=== PATIENT | male | born 1945 | race Caucasian/White ===

== ENCOUNTER 2018-07-31 07:00 | Outpatient (CLI) | payer MEDICARE, SELFPAY ==
[2018-07-31 11:38] LABS: Cholesterol 187 mg/dL (50-200); Glucose 111 mg/dL (70-100); HDL Cholesterol 40 mg/dL (40-60); LDL CHOLESTEROL 107 mg/dL (<100); Triglyceride 154 mg/dL (30-150)
[2018-07-31 11:50] LABS: Uric Acid 3.7 mg/dL (3.5-7.2)
== END 2018-07-31 07:20 ==
PROVIDERS: PCP Family Medicine; Visit Provider Family Medicine
DX: R74.8 Abnormal levels of other serum enzymes (principal); E74.39 Other disorders of intestinal carbohydrate absorption; R73.02 Impaired glucose tolerance (oral); I10 Essential (primary) hypertension
CPT/HCPCS: 36415; 80061; 82947; 83721; 84550

== ENCOUNTER 2020-11-06 11:45 | Outpatient (CLI) | payer MEDICARE, SELFPAY ==
[2020-11-06 13:12] LABS: Hemoglobin A1C 5.7 % (<5.7)
[2020-11-06 14:53] LABS: Anion Gap 7.5 mmol/L (3-11); CO2 28.5 mmol/L (21.0-32.0); CREATININE 0.9 mg/dL (0.70-1.30); Chloride 104 mmol/L (98-107); Glucose 110 mg/dL (74-106); Potassium 4.3 mmol/L (3.5-5.1); Sodium 140 mmol/L (136-145)
[2020-11-06 15:17] LABS: Calculated LDL 119 mg/dL (<100); Cholesterol 206 mg/dL (<200); HDL Cholesterol 40 mg/dL (40-60); Triglyceride 238 mg/dL (<150)
== END 2020-11-06 11:46 | disposition home or self-care (01) ==
LOC: LOS 11:46
PROVIDERS: Absent Provider Family Medicine; PCP Family Medicine; Referring Provider Family Medicine; Visit Provider Family Medicine
DX: M10.9 Gout, unspecified (principal); I10 Essential (primary) hypertension; E78.5 Hyperlipidemia, unspecified; R73.9 Hyperglycemia, unspecified; E87.1 Hypo-osmolality and hyponatremia
CPT/HCPCS: 36415; 80051; 80061; 82947; 82565; 83036; 84550

== ENCOUNTER 2021-11-09 08:52 | Outpatient (CLI) | payer MEDICARE, SELFPAY ==
[2021-11-09 12:47] LABS: CREATININE 0.9 mg/dL (0.70-1.30); Calculated LDL 121 mg/dL (<100); Cholesterol 206 mg/dL (<200); HDL Cholesterol 43 mg/dL (40-60); Potassium 4.2 mmol/L (3.5-5.1); Triglyceride 212 mg/dL (<150)
[2021-11-09 13:00] LABS: Hemoglobin A1C 5.8 % (<5.7)
== END 2021-11-09 08:53 | disposition home or self-care (01) ==
LOC: LOS 08:52
PROVIDERS: PCP Family Medicine; Referring Provider Family Medicine; Visit Provider Family Medicine
DX: R73.9 Hyperglycemia, unspecified (principal); E78.5 Hyperlipidemia, unspecified; I10 Essential (primary) hypertension
CPT/HCPCS: 36415; 80061; 82565; 83036; 84132

== ENCOUNTER 2022-04-20 10:35 | Inpatient (IN) | payer MEDICARE, SELFPAY ==
[2022-04-20] VITALS (7 sets, daily range): BP systolic 121–145; BP diastolic 64–78; PULSE 59–76; RESP 16–18; TEMP 36.4–36.8; O2SAT 97–100
--- NOTE | 2022-04-20 | DI.MRI_ITS ---
Exam(s) MR ABDOMEN WO EXAM: MR ABDOMEN WO CLINICAL HISTORY: r/o choledocolithiasis with elevated bilirubin TECHNIQUE: Multiplanar multisequence MRI was performed with both pre and post contrast infused seque nces. MRCP also performed. COMPARISON: US US ABDOMEN LIMITED from 04/20/2022 FINDINGS: VISUALIZED LUNG BASES: No pleural effusions evident. There is no ascites evident. LIVER: Liver size is upper normal. No significant focal hepatic lesions noted. No dilated intrahepa tic ducts. BILIARY/MRCP: Multiple tiny layering gallstones noted in the gallbladder lumen. There is some gallbl adder wall edema and mild pericholecystic fluid. The CBD is not dilated, measuring 4 millimeters. T here are no obvious calculi seen within the nondilated CBD. PANCREAS: There is a small cystic lesion in the posterior aspect of the body of the pancreas which me asures approximately 6 x4 millimeters. Pancreatic duct is not dilated.No other focal pancreatic find ings. SPLEEN: Spleen is not enlarged and there are no intrasplenic lesions. ADRENALS: There are no significant adrenal masses. KIDNEYS: No solid renal masses. No hydronephrosis.No cysts evident. ABDOMINAL AORTA: Not enlarged and there is no significant para-aortic adenopathy. ANTERIOR ABDOMINAL WALL/GI: There is no evidence of significant anterior abdominal wall hernia in the field of view of this study.Is no evidence of obvious bowel obstruction. OSSEOUS: There are no lytic osseous lesions in the field of view of this study. IMPRESSION: 1. Cholelithiasis. There is layering myriad of tiny calculi in the gallbladder lumen and there is so me pericholecystic fluid, consistent with element of cholecystitis. The CBD is not dilated and there are no obvious calculi evident within the nondilated CBD. 2. Incidentally noted is a solitary small 6 x 4 millimeters cystic lesion in the posterior aspect of the pancreatic body. 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 This can be followed conservatively with repeat MRI scan in 1 year. DATA REPOSITORY:
[2022-04-20 11:07] LABS: Bilirubin Large (Negative); Blood Negative (Negative); Clarity Sl Cloudy (Clear); Glucose Negative (Negative); Ketones 15 mg/dL (Negative); Leukocyte Esterase Negative (Negative); Nitrite Negative (Negative); Specific Gravity 1.025 (1.005-1.025); Urobilinogen 0.2 EU/dL (Up TO 0.2)
--- NOTE | 2022-04-20 11:08 | DI.US_ITS ---
Exam(s) US ABDOMEN LIMITED EXAM: US ABDOMEN LIMITED CLINICAL HISTORY: RUQ pain TECHNIQUE: Ultrasound abdomen performed using standard protocol. COMPARISON: No exams were available for comparison FINDINGS: There is no ascites evident. LIVER: There are no hepatic lesions evident nor dilatation of intrahepatic ducts. GALLBLADDER/BILIARY: There is what is either layering sludge or numerous tiny gallstones in the gallb ladder lumen. Gallbladder wall is mildly thickened. There is a small amount of pericholecystic flui d. The patient was tender over this area during scanning today. The common hepatic duct isnot dilated, measuring 5-6mm at the level of mohsen hepatis. PANCREAS: There is no evidence of pancreatic mass nor dilatation of the pancreatic duct. RIGHT KIDNEY:No evidence of solid mass, calculus, nor hydronephrosis. No cortical cysts evident. ABDOMINAL AORTA AND IVC: Visualized portions exhibit normal caliber. IMPRESSION: 1. Cholelithiasis and subtle evidence of cholecystitis. There are multiple tiny nonshadowing gallst ones +/-sludge in the gallbladder lumen and the gallbladder is somewhat edematous with a tiny amount of pericholecystic fluid. Patient was apparently tender over the gallbladder during scanning today. 2. Common hepatic duct is not dilated. 3. No other focal right upper quadrant ultrasound findings and there is no ascites evident. DATA REPOSITORY:
[2022-04-20 11:18] LABS: Bacteria Negative HPF (Negative); C & S Indicated? No; Casts 0-2 Hyaline LPF (Negative); Crystals Negative HPF (Negative); Epithelial Cells Rare HPF (Negative); Mucus Heavy (Negative); RBC Negative HPF (0-2); WBC Negative HPF (0-5)
--- NOTE | 2022-04-20 11:24 | W.ED.GENAD ---
Discharge Plan Disposition Patient Disposition: [facility] INPATIENT Condition: Stable Discharge Details Chief Complaint: Abd Prob Clinical Impression: Cholecystitis Primary Care Provider: Johnny Carbajal ED Provider: Sheldon Morelos Home Meds and New Rx's Prescriptions: No Action ibuprofen [Advil] 200 MG tablet 400 mg PO PRN Qty: 90 3RF triamcinolone acetonide 15 GM cream 1 appful Topical BID PRNQty: 30 Rx Instructions: apply to forehead rash as needed fluorouracil 5 % cream 1 applic topical DAILY PRN (Reason: actinic keratoses) Qty: 40 1RF Rx Instructions: apply sufficient amount to cover all lesions for 10 days tadalafil 20 mg tablet 20 mg PO DAILY PRN (Reason: sexual activity) Qty: 30 2RF Rx Instructions: administer approximately 30min before sexual activity; do not use more than 1 dose per 24hrs allopurinol 300 mg tablet 300 mg PO DAILY Qty: 90 4RF Rx Instructions: Fill when patient calls lisinopril 10 mg tablet 10 mg PO DAILY Qty: 90 3RF Medical Decision Making 77-year-old gentleman presenting for potential cholecystitis, abdominal pain intermittent since mid summer with nausea and vomiting. I was able to review the CT imaging over the weekend, reveals severe gallbladder distention correlate with physical exam possible acute cholecystitis in mild gallbladder wall thickening. At that time no leukocytosis, LFTs unremarkable. Plan today is to obtain IV access, obtain routine screening laboratory values and ultrasound Laboratory values reveal a white blood cell count of 8.30. Electrolytes unremarkable. Creatinine 1.0 with a GFR of 76.56. Total bili of 3.9 AST 83 ALT 386 alk phosphatase 197. Lipase normal at 128. Ultrasound reveals cholelithiasis and subtle evidence of cholecystitis. Given his laboratory values today, ultrasound today, recent CT imaging, plan is to discuss the case with our surgical team for likely admission for cholecystitis. Patient is afebrile, no leukocytosis, will await antibiotic therapy if directed by surgery Case discussed with our surgical team, Dr. Burton. He personally evaluated the patient in room 4 and is agreeable to admission, will provide admission orders This documentation was generated using 6Senseation system, please disregard any oddities of phrase or misspellings. Medical Records Medical records reviewed: Yes I reviewed the patient's medical records. Imaging Data Radiologic Study: Attestation: I personally reviewed and interpreted this imaging study as follows: Imaging: Ultrasound Radiologist's impression: Exam(s) US ABDOMEN LIMITED EXAM: US ABDOMEN LIMITED CLINICAL HISTORY: RUQ pain TECHNIQUE: Ultrasound abdomen performed using standard protocol. COMPARISON: No exams were available for comparison FINDINGS: There is no ascites evident. LIVER: There are no hepatic lesions evident nor dilatation of intrahepatic ducts. GALLBLADDER/BILIARY: There is what is either layering sludge or numerous tiny gallstones in the gallbladder lumen. Gallbladder wall is mildly thickened. There is a small amount of pericholecystic fluid. The patient was tender over this area during scanning today. The common hepatic duct isnot dilated, measuring 5-6mm at the level of mohsen hepatis. PANCREAS: There is no evidence of pancreatic mass nor dilatation of the pancreatic duct. RIGHT KIDNEY:No evidence of solid mass, calculus, nor hydronephrosis. No cortical cysts evident. ABDOMINAL AORTA AND IVC: Visualized portions exhibit normal caliber. IMPRESSION: 1. Cholelithiasis and subtle evidence of cholecystitis. There are multiple tiny nonshadowing gallstones +/-sludge in the gallbladder lumen and the gallbladder is somewhat edematous with a tiny amount of pericholecystic fluid. Patient was apparently tender over the gallbladder during scanning today. 2. Common hepatic duct is not dilated. 3. No other focal right upper quadrant ultrasound findings and there is no ascites evident. Lab Data Lab results reviewed: Yes I reviewed the patient's lab results. Labs: Laboratory Tests Range/Units 04/20/22 04/20/22 04/20/22 11:00 11:43 11:43 WBC (4.4-10.8) 10^3/uL 8.30 RBC (4.36-5.78) 10^6/uL 4.32 L Hgb (13.5-17.5) g/dL 14.5 Hct (40.0-50.0) % 42.8 MCV (80-95) fL 99 H MCH (27.0-33.0) pg 33.6 H MCHC (32.0-36.0) % 33.9 RDW (11.8-14.1) % 12.6 Plt Count (130-400) 10^3/uL 177 MPV (8.0-11.0) fL 10.0 Immature Gran % 0.6 Neutrophils % 83.6 Lymphocytes % 8.1 Monocytes % 6.5 Eosinophils % 0.8 Basophils % 0.4 Nucleated RBC % (0.0-0.3) % 0.0 Absolute Neutrophils (1.2-6.7) 10^3/uL 6.94 H Absolute Lymphocytes (1.2-3.4) 10^3/uL 0.67 L Absolute Monocytes (0.1-0.8) 10^3/uL 0.54 Absolute Eosinophils (0.0-0.7) 10^3/uL 0.07 Absolute Basophils (0.0-0.2) 10^3/uL 0.03 Sodium (136-145) mmol/L 138 Potassium (3.5-5.1) mmol/L 3.6 Chloride (98-107) mmol/L 102 Carbon Dioxide (21.0-32.0) mmol/L 28.7 Anion Gap (3-11) mmol/L 7.3 BUN (7-18) mg/dL 17 Creatinine (0.70-1.30) mg/dL 1.0 Est GFR (CKD-EPI 2020) (mL/min/1.73m2) 76.56 Glucose (74-106) mg/dL 121 H Calcium (8.5-10.1) mg/dL 9.3 Total Bilirubin (0.2-1.0) mg/dL 3.9 H AST (15-37) U/L 83 H ALT (16-63) U/L 386 H Alkaline Phosphatase (46-116) U/L 197 H Total Protein (6.4-8.2) g/dL 7.4 Albumin (3.4-5.0) g/dL 3.4 Lipase (73-393) U/L 128 Urine Color (Yellow) Dark Yellow Urine Clarity (Clear) Sl Cloudy Urine pH (5-8) 6.0 Ur Specific [place] (1.005-1.025) 1.025 Urine Protein (Negative) mg/dL 30 H Urine Ketones (Negative) mg/dL 15 H Urine Blood (Negative) Negative Urine Nitrite (Negative) Negative Urine Bilirubin (Negative) Large H Urine Urobilinogen (Up TO 0.2) EU/dL 0.2 Ur Leukocyte Esterase (Negative) Negative Urine RBC (0-2) HPF Negative Urine WBC (0-5) HPF Negative Ur Epithelial Cells (Negative) HPF Rare Urine Crystals (Negative) HPF Negative Urine Bacteria (Negative) HPF Negative Urine Casts (Negative) LPF 0-2 Hyaline Urine Mucus (Negative) Heavy Ur Culture Indicated? No Urine Glucose (Negative) mg/dL Negative HPI General Mode of arrival: ambulatory. Date/Time Provider Initiated Documentation: 04/20/22 10:37. Limitations to Documentation: no limitations. Information obtained by: patient. HPI Narrative: This is a 77-year-old gentleman with Jennifer history of hypertension, gout, hyperlipidemia, presenting to the ER for evaluation of acute on chronic abdominal pain that has been going on for the past 4-5 months. Reports symptoms were severe over the weekend prompting him to go to another ER, CT obtained, cardiac work-up ensued and subsequently discharged home. Spoke with his PCP today who sent to the ER for ongoing pain and hopeful ultrasound of his gallbladder for further evaluation of the symptoms. PCP is going to fax me the results of his recent visit. Patient reports that at this very moment his pain is better than it had been over the past couple of days, denies fever or chills. Denies chest pain or shortness of breath. Does report occasional nausea and vomiting, decreased appetite. Has not been taking any [id number] medications for his symptoms Related Data Home Medications Medication Instructions Recorded Confirmed ibuprofen 200 mg tablet (Advil) 400 mg PO PRN #90 tab-caps 03/24/17 11/09/21 triamcinolone acetonide 0.1 % 1 appful topical BID PRN #30 grams 07/09/17 11/09/21 topical cream fluorouracil 5 % topical cream 1 applic topical DAILY PRN actinic 07/09/20 11/09/21 keratoses #40 grams tadalafil 20 mg tablet 20 mg PO DAILY PRN sexual activity 03/26/21 11/09/21 #30 tabs allopurinol 300 mg tablet 300 mg PO DAILY #90 tab-caps 12/28/21 lisinopril 10 mg tablet 10 mg PO DAILY #90 tabs 03/28/22 Previous Rx's Medication Instructions Recorded ibuprofen 200 mg tablet (Advil) 400 mg PO PRN #90 tab-caps 03/24/17 fluorouracil 5 % topical cream 1 applic topical DAILY PRN actinic 07/09/20 keratoses #40 grams tadalafil 20 mg tablet 20 mg PO DAILY PRN sexual activity 03/26/21 #30 tabs allopurinol 300 mg tablet 300 mg PO DAILY #90 tab-caps 12/28/21 lisinopril 10 mg tablet 10 mg PO DAILY #90 tabs 03/28/22 Allergies Allergy/AdvReac Type Severity Reaction Status Date / Time No Known Allergies Allergy Verified 04/20/22 10:50 General Stated Complaint: Abd Prob MALORIE: 3 Review of Systems Constitutional Constitutional: Denies fever(s) and Denies weakness ENT Ears, Nose, Mouth, and Throat: Denies neck pain Cardiovascular Cardiovascular: Denies chest pain and Denies dyspnea Respiratory Respiratory: Denies cough and Denies dyspnea Gastrointestinal Gastrointestinal: Reports abdominal pain, Denies melena, Denies hematochezia, Denies constipation, Denies diarrhea, Reports nausea and Reports vomiting Genitourinary Genitourinary: Denies dysuria Musculoskeletal Musculoskeletal: Denies back pain, Denies neck pain, Denies numbness and Denies tingling Integumentary/Breasts Skin/Breast: Denies rash Neurologic Neurologic: Denies numbness, Denies tingling and Denies weakness Hematologic/Lymphatic Hematologic/Lymphatic: Denies easy bleeding and Denies easy bruising PFSH All Active Problems (Updated 04/20/22 @ 13:31 by VLADISLAV Michael) Cholecystitis (Acute) Essential tremor (Acute) Well adult (Acute) Essential hypertension (Acute) Dysplastic nevus of face (Acute) FACE AND BACK Erectile disorder, generalized, mild (Acute) Gout (Acute) Hyperglycemia (Acute) Hypertriglyceridemia (Acute) Low serum HDL (Acute) Rosacea (Acute) Senile angioma (Acute) Medical History Gout Hyperglycemia Hypertriglyceridemia Surgical History Repair of inguinal hernia (03/08/16) RIGHT Family History Mother Bile duct cancer Sister No problems noted. Sister No problems noted. Brother Stroke Brother No problems noted. Brother No problems noted. Social History Smoking/Tobacco Use Status: Never Second Hand Exposure: Yes Smoking risk assessment performed?: Yes Alcohol Intake: current Alcohol Intake frequency: 3 or more drinks per day Alcohol type: beer Drug use: Never Substance use type: does not use Caregiver/Support person: No Household members: spouse Housing: house Communication Needs: None and Hard of Hearing Pets and animals: No Sexually active: Yes Do you think of yourself as: straight/heterosexual Current gender identity: male What is your relationship status?: How often do you talk on the phone with friends or family?: decline to answer How often do you get together with friends or relatives?: decline to answer How often do you attend confucianist or judaism services?: decline to answer Do you belong to any clubs or organized social groups?: decline to answer Panel score (0-1 are the most socially isolated patients): 1 Jessica/Gnosticism: No preference Special jessica needs: No Do you feel safe at home: Yes Do you feel safe in your relationship?: Yes Exam Const General: cooperative, healthy appearing, comfortable and no acute distress Orientation: alert, awake and oriented x3 HENMT Head: normal to inspection, normocephalic and atraumatic Face and sinus: normal facial exam Mouth: moist mucous membranes Throat: posterior oropharynx normal Eyes General: appearance normal, both eyes and all related structures Conjunctivae: conjunctivae normal Neck Neck: normal visual inspection, full ROM, no meningeal signs, trachea midline and supple Resp Effort & Inspection: normal respiratory effort and able to speak in complete sentences Auscultation: clear to auscultation bilaterally Cardio Rate: regular rate Rhythm: regular rhythm GI Inspection: normal to inspection Palpation: soft, not firm, no guarding, no pulsatile masses and tender in the RUQ (mild); not at McBurney's point, Man's sign negative and with no rebound tenderness Auscultation: normal bowel sounds Back/Spine/Pelvis Back: no CVA tenderness and No back tenderness Skin General skin exam: no rashes or lesions noted Neuro General: patient alert, patient awake, moves all extremities and no focal motor deficits Cognition: normal cognition Speech: speech normal Gait: normal gait Sensory Exam: no sensory deficits noted Extrem General: normal to inspection, full ROM and capillary refill normal Psych Appearance: grossly normal Mental Status: mental status grossly normal Course Vital Signs Vital signs: Vital Signs Temperature 36.6 C 04/20/22 10:43 Pulse 76 04/20/22 10:43 Respiratory Rate 18 04/20/22 10:43 Blood Pressure 122/68 04/20/22 10:43 Pulse Oximetry 98 04/20/22 10:43 Temperature 36.6 C 04/20/22 10:43 Pulse 76 04/20/22 10:43 Respiratory Rate 18 04/20/22 10:43 Blood Pressure 122/68 04/20/22 10:43 Blood Pressure Position Sitting 04/20/22 10:43 Pulse Oximetry 98 04/20/22 10:43 Oxygen Delivery Method Room Air 04/20/22 10:43 Oxygen Flow Rate 0 04/20/22 10:43 Pain Level 8 04/20/22 10:43 Lab/Test Results Lab/Test Results: Laboratory Tests Range/Units 04/20/22 11:00 Urine Color (Yellow) Dark Yellow Urine Clarity (Clear) Sl Cloudy Urine pH (5-8) 6.0 Ur Specific [place] (1.005-1.025) 1.025 Urine Protein (Negative) mg/dL 30 H Urine Ketones (Negative) mg/dL 15 H Urine Blood (Negative) Negative Urine Nitrite (Negative) Negative Urine Bilirubin (Negative) Large H Urine Urobilinogen (Up TO 0.2) EU/dL 0.2 Ur Leukocyte Esterase (Negative) Negative Urine RBC (0-2) HPF Negative Urine WBC (0-5) HPF Negative Ur Epithelial Cells (Negative) HPF Rare Urine Crystals (Negative) HPF Negative Urine Bacteria (Negative) HPF Negative Urine Casts (Negative) LPF 0-2 Hyaline Urine Mucus (Negative) Heavy Ur Culture Indicated? No Urine Glucose (Negative) mg/dL Negative
[2022-04-20 11:50] LABS: Abs Immature Grans 0.05 10^3/uL (0.0-0.06); Absolute Basophil Count 0.03 10^3/uL (0.0-0.2); Absolute Eosinophil Count 0.07 10^3/uL (0.0-0.7); Absolute Lymphocyte Count 0.67 10^3/uL (1.2-3.4); Absolute Monocyte Count 0.54 10^3/uL (0.1-0.8); Absolute Neutrophil Count 6.94 10^3/uL (1.2-6.7); Basophils % 0.4; Eosinophils % 0.8; HCT 42.8 % (40.0-50.0); HGB 14.5 g/dL (13.5-17.5); Immature Grans % 0.6; Lymphocytes % 8.1; MCH 33.6 pg (27.0-33.0); MCHC 33.9 % (32.0-36.0); MCV 99 fL (80-95); Monocytes % 6.5; Neutrophils % 83.6; Platelet Count 177 10^3/uL (130-400); RBC 4.32 10^6/uL (4.36-5.78); RDW 12.6 % (11.8-14.1)
[2022-04-20 12:06] LABS: ALT 386 U/L (16-63); AST 83 U/L (15-37); Albumin 3.4 g/dL (3.4-5.0); Alkaline Phosphatase 197 U/L (46-116); Anion Gap 7.3 mmol/L (3-11); BUN 17 mg/dL (7-18); Bilirubin, Total 3.9 mg/dL (0.2-1.0); CO2 28.7 mmol/L (21.0-32.0); Calcium 9.3 mg/dL (8.5-10.1); Chloride 102 mmol/L (98-107); Estimated GFR 76.56 (mL/min/1.73m2); Glucose 121 mg/dL (74-106); Lipase 128 U/L (73-393); Potassium 3.6 mmol/L (3.5-5.1); Sodium 138 mmol/L (136-145); Total Protein 7.4 g/dL (6.4-8.2)
--- NOTE | 2022-04-20 12:55 | HPE_ITS ---
Date of service: 04/20/22 Time of Service: 12:30 Assessment and Plan Assessment and plan (1) Cholecystitis: Status: Acute Assessment and plan: I think the history, physical exam, and imaging are most consistent with acute cholecystitis. However, with the bilirubin level elevated, I do have some concerns for choledocholithiasis. We can check a MRCP today to rule that out. Assuming that is negative, then we will proceed with urgent cholecystectomy. History of Present Illness History of Present Illness Chief Complaint: Abdominal pain Narrative: Lyndon is a 77-year-old male with several weeks of midepigastric abdominal pain. Initially, he thought it was gastroesophageal reflux disease. He trialed some antacids without any success. More recently, he has developed increasing frequency and intensity of the pain. Is now radiating to his back and he has had postprandial nausea and vomiting with almost every meal. He was seen at another hospital, where he underwent a CAT scan of the abdomen and pelvis. That test suggested the possibility of acute cholecystitis. He was recommended to follow-up with an ultrasound. However, since his abdominal pain and vomiting persisted today, he came into the emergency department where an ultrasound was performed. That study, in fact, supported the diagnosis of acute cholecystitis. Interestingly, he also has an acute increase in his serum bilirubin level Review of Systems Constitutional Constitutional: Reports system reviewed and no additional complaints, except as documented, Denies chills and Denies fever(s) Eyes Eyes: Reports system reviewed and no additional complaints, except as documented ENT Ears, Nose, Mouth, and Throat: Reports system reviewed and no additional complaints, except as documented Cardiovascular Cardiovascular: Reports system reviewed and no additional complaints, except as documented Respiratory Respiratory: Denies chest congestion and Denies cough Gastrointestinal Gastrointestinal: Reports abdominal pain, Denies change in stool character, Saji es cramping, Denies diarrhea, Reports nausea and Reports vomiting Genitourinary Genitourinary: Reports system reviewed and no additional complaints, except as documented Musculoskeletal Musculoskeletal: Reports system reviewed and no additional complaints, except as documented Integumentary/Breasts Comments: Yellow skin Neurologic Neurologic: Reports system reviewed and no additional complaints, except as documented Psychiatric Psychiatric: Reports system reviewed and no additional complaints, except as documented Endocrine Endocrine: Reports system reviewed and no additional complaints, except as documented Hematologic/Lymphatic Hematologic/Lymphatic: Reports system reviewed and no additional complaints, except as documented PFSH All Active Problems Cholecystitis (Acute) Essential tremor (Acute) Well adult (Acute) Essential hypertension (Acute) Dysplastic nevus of face (Acute) FACE AND BACK Erectile disorder, generalized, mild (Acute) Gout (Acute) Hyperglycemia (Acute) Hypertriglyceridemia (Acute) Low serum HDL (Acute) Rosacea (Acute) Senile angioma (Acute) Medical History Gout Hyperglycemia Hypertriglyceridemia Surgical History Repair of inguinal hernia (03/08/16) RIGHT Family History Mother Bile duct cancer Sister No problems noted. Sister No problems noted. Brother Stroke Brother No problems noted. Brother No problems noted. Social History Smoking/Tobacco Use Status: Never Second Hand Exposure: Yes Smoking risk assessment performed?: Yes Alcohol Intake: current Alcohol Intake frequency: 3 or more drinks per day Alcohol type: beer Drug use: Never Substance use type: does not use Caregiver/Support person: No Household members: spouse Housing: house Communication Needs: None and Hard of Hearing Pets and animals: No Sexually active: Yes Do you think of yourself as: straight/heterosexual Current gender identity: male What is your relationship status?: How often do you talk on the phone with friends or family?: decline to answer How often do you get together with friends or relatives?: decline to answer How often do you attend hoahaoism or pentecostalism services?: decline to answer Do you belong to any clubs or organized social groups?: decline to answer Panel score (0-1 are the most socially isolated patients): 1 Jessica/Gnosticist: No preference Special jessica needs: No Do you feel safe at home: Yes Do you feel safe in your relationship?: Yes Meds Allergies and Home Medications Allergies Allergy/AdvReac Type Severity Reaction Status Date / Time No Known Allergies Allergy Verified 04/20/22 10:50 Home Medications Medication Instructions Recorded Confirmed Type ibuprofen 200 mg tablet (Advil) 400 mg PO PRN #90 tab-caps 03/24/17 04/20/22 Rx triamcinolone acetonide 0.1 % 1 appful topical BID PRN #30 grams 07/09/17 04/20/22 History topical cream fluorouracil 5 % topical cream 1 applic topical DAILY PRN actinic 07/09/20 04/20/22 Rx keratoses #40 grams tadalafil 20 mg tablet 20 mg PO DAILY PRN sexual activity 03/26/21 04/20/22 Rx #30 tabs allopurinol 300 mg tablet 300 mg PO DAILY #90 tab-caps 12/28/21 04/20/22 Rx lisinopril 10 mg tablet 10 mg PO DAILY #90 tabs 03/28/22 04/20/22 Rx acetaminophen 500 mg tablet 1,000 mg PO PRN PRN 04/20/22 04/20/22 History (Acetaminophen Extra Strength) pantoprazole 40 mg tablet,delayed 1 tab PO DAILY 04/20/22 04/20/22 History release Exam Const General: cooperative, healthy appearing and comfortable Orientation: awake and oriented x3 Eyes General: appearance normal, both eyes and all related structures Conjunctivae: conjunctivae normal Sclera: sclerae normal Resp Effort & Inspection: normal respiratory effort and able to speak in complete sentences Cardio Jugular venous pressure: no JVD Rate: regular rate GI Inspection: non-distended Palpation: soft, no guarding, no hernias and nontender Auscultation: normal bowel sounds Skin General skin exam: normal turgor Other: He has a very faint yellow tinge mostly noticeable in the upper arms. Neuro General: patient alert, patient awake and patient oriented x3 Cognition: normal cognition Extrem Right lower extremity: no edema Left lower extremity: no edema Results Labs Result diagrams: 04/20/22 11:43 04/20/22 11:43 Labs: Laboratory Results - last 24 hr 04/20/22 04/20/22 04/20/22 11:00 11:43 11:43 WBC 8.30 RBC 4.32 L Hgb 14.5 Hct 42.8 MCV 99 H MCH 33.6 H MCHC 33.9 RDW 12.6 Plt Count 177 MPV 10.0 Immature Gran % 0.6 Neutrophils % 83.6 Lymphocytes % 8.1 Monocytes % 6.5 Eosinophils % 0.8 Basophils % 0.4 Nucleated RBC % 0.0 Absolute Neutrophils 6.94 H Absolute Lymphocytes 0.67 L Absolute Monocytes 0.54 Absolute Eosinophils 0.07 Absolute Basophils 0.03 Sodium 138 Potassium 3.6 Chloride 102 Carbon Dioxide 28.7 Anion Gap 7.3 BUN 17 Creatinine 1.0 Est GFR (CKD-EPI 2020) 76.56 Glucose 121 H Calcium 9.3 Total Bilirubin 3.9 H AST 83 H ALT 386 H Alkaline Phosphatase 197 H Total Protein 7.4 Albumin 3.4 Lipase 128 Urine Color Dark Yellow Urine Clarity Sl Cloudy Urine pH 6.0 Ur Specific [place] 1.025 Urine Protein 30 H Urine Ketones 15 H Urine Blood Negative Urine Nitrite Negative Urine Bilirubin Large H Urine Urobilinogen 0.2 Ur Leukocyte Esterase Negative Urine RBC Negative Urine WBC Negative Ur Epithelial Cells Rare Urine Crystals Negative Urine Bacteria Negative Urine Casts 0-2 Hyaline Urine Mucus Heavy Ur Culture Indicated? No Urine Glucose Negative Last Vital Signs Temp 97.9 F 04/20/22 10:43 Pulse 76 04/20/22 10:43 Resp 18 04/20/22 10:43 BP 122/68 04/20/22 10:43 Pulse Ox 98 04/20/22 10:43 PAWSS Have you Been Recently Intoxicated or Drunk Within the Last 30 days?: No Have you Ever Experienced Previous Episodes of Alcohol Withdrawal?: No Have you ever Experienced Withdrawal Seizures?: No Have you ever Experienced Delirium Tremens(DT)s?: No Have you ever undergone Alcohol Rehabilitation Treatment (i.e, inpt ot outpatient treatment programs)?: No Have you ever Experienced Blackouts?: No Have you ever Combined Alcohol with other Downers within the last 90 days?: No Have you ever Combined Alcohol with any other Substance of Abuse during the last 90 days?: No Positive Blood Alcohol level on Presentation? [PCS.BAL]: No Evidence of Increased Autonomic Activity (i.e. HR>120, tremor, sweating, agitation, nausea)?: No Result: 0
[2022-04-20] MEDS: PIPERACILLIN/TAZO 3.375 GM in Normal Saline 50 ML IVPB ×3 (13:30→23:55)
[2022-04-20 13:31] LABS: Source Nasal/Nares
[2022-04-20 14:40] LABS: COVID-19 PCR Negative (Negative)
[2022-04-20] MEDS: Lactated Ringers 1,000 ML 75 ML IV (16:15)
[2022-04-20] MEDS: Acetaminophen 500 MG TAB 1000 MG PO ×2 (16:17→21:59)
[2022-04-20] MEDS: Enoxaparin 40 MG/0.4 ML SYR SC (16:20)
[2022-04-20] MEDS: Normal Saline Flush 10 ML SYR IVP (17:30)
[2022-04-21] VITALS (14 sets, daily range): BP systolic 136–191; BP diastolic 52–79; PULSE 44–75; RESP 14–21; TEMP 36.2–37.6; O2SAT 95–99; BMI 28.5
[2022-04-21] MEDS: Lactated Ringers 1,000 ML 75 ML IV ×2 (05:59→17:01)
[2022-04-21] MEDS: PIPERACILLIN/TAZO 3.375 GM in Normal Saline 50 ML IVPB ×4 (06:00→23:16)
[2022-04-21 07:09] LABS: ALT 239 U/L (16-63); AST 36 U/L (15-37); Albumin 2.8 g/dL (3.4-5.0); Alkaline Phosphatase 170 U/L (46-116); Anion Gap 7.6 mmol/L (3-11); BUN 15 mg/dL (7-18); Bilirubin, Direct 1.1 mg/dL (0.0-0.2); CO2 26.4 mmol/L (21.0-32.0); CREATININE 0.8 mg/dL (0.70-1.30); Calcium 8.4 mg/dL (8.5-10.1); Chloride 104 mmol/L (98-107); Estimated GFR 90.02 (mL/min/1.73m2); Glucose 94 mg/dL (74-106); Potassium 3.5 mmol/L (3.5-5.1); Sodium 138 mmol/L (136-145); Total Protein 6.1 g/dL (6.4-8.2)
--- NOTE | 2022-04-21 08:05 | W.ANESPRE ---
General Info Date of Service Date Performed: 04/21/22 Height: 5 ft 10 in Weight: 90.265 kg Body Mass Index (BMI): 28.5 Surgical Procedure: Operation Date: 04/21/22 12:10 Proposed Procedure Side Surgeon p Cholecystectomy Laparoscopic Rigo Burton MD Meds Allergies and Home Medications Allergies Allergy/AdvReac Type Severity Reaction Status Date / Time No Known Allergies Allergy Verified 04/20/22 10:50 Home Medication Medication Instructions Recorded ibuprofen 200 mg tablet (Advil) 400 mg PO PRN #90 tab-caps 03/24/17 triamcinolone acetonide 0.1 % 1 appful topical BID PRN #30 grams 07/09/17 topical cream fluorouracil 5 % topical cream 1 applic topical DAILY PRN actinic 07/09/20 keratoses #40 grams tadalafil 20 mg tablet 20 mg PO DAILY PRN sexual activity 03/26/21 #30 tabs allopurinol 300 mg tablet 300 mg PO DAILY #90 tab-caps 12/28/21 lisinopril 10 mg tablet 10 mg PO DAILY #90 tabs 03/28/22 acetaminophen 500 mg tablet 1,000 mg PO PRN PRN 04/20/22 (Acetaminophen Extra Strength) pantoprazole 40 mg tablet,delayed 1 tab PO DAILY 04/20/22 release Current Visit Medications: Current Medications Generic Name Dose Route Start Last Admin Trade Name Freq PRN Reason Stop Dose Admin Acetaminophen 1,000 mg 04/20/22 13:00 04/21/22 05:09 Acetaminophen 500 Mg Tab PO Not Given Q8H CAMPOS Enoxaparin Sodium 40 mg 04/20/22 16:00 04/20/22 16:20 Enoxaparin 40 Mg/0.4 Ml Syr SC 40 mg Q24H CAMPOS Administration Sodium Chloride 500 mls @ 0 mls/hr 04/20/22 12:43 Saline 500ml Bag IV PRN PRN As Directed Ringer's Solution 1,000 mls @ 75 mls/hr 04/20/22 12:45 04/21/22 05:59 IV 75 mls/hr INFUSION CAMPOS Administration Piperacillin Sod/Tazobactam 50 mls @ 100 mls/hr 04/20/22 18:00 04/21/22 06:30 Sod 3.375 gm/ Sodium Chloride IVPB Infused Q6H CAMPOS Infusion Protocol IV Miscellaneous Supplies 1 each 04/20/22 12:45 Iv Access IV DIRECTED CAMPOS Lisinopril 10 mg 04/21/22 08:30 04/21/22 07:48 Lisinopril 10 Mg Tab PO Not Given DAILY CAMPOS Morphine Sulfate 2 mg 04/20/22 12:43 Morphine 2 Mg/Ml Syr IVP Q1H PRN PRN Ondansetron HCl 4 mg 04/20/22 12:43 Ondansetron 4 Mg/2 Ml Vial IVP Q4H PRN PRN Sodium Chloride 0 ml 04/20/22 12:43 04/20/22 17:30 Normal Saline Flush 10 Ml Syr IVP 20 ml PRN PRN Administration PFSH Active Problems Active Problems: Problem Status Onset Code Cholecystitis K81.9 Essential tremor G25.0 Well adult Essential hypertension I10 Dysplastic nevus of face D23.30 Erectile disorder, generalized, mild F52.21 Gout M10.9 Hyperglycemia R73.9 Hypertriglyceridemia E78.1 Low serum HDL R74.8 Rosacea L71.9 Senile angioma I78.1 Medical History Medical History Gout Hyperglycemia Hypertriglyceridemia Surgical History Surgical History Repair of inguinal hernia (03/08/16) RIGHT Tobacco Smoking/Tobacco Use Status: Never Second hand exposure: Yes Alcohol Alcohol Intake: current Alcohol intake frequency: 3 or more drinks per day Alcohol type: beer Substance Use Substance use: Never Substance use type: does not use Vital Signs and Lab Results Vital Signs Most Recent Vital Signs in EMR: Most Recent Vital Signs Temp Pulse Resp BP Pulse Ox 36.5 C 66 17 136/69 97 04/21/22 07:28 04/21/22 07:28 04/21/22 07:28 04/21/22 07:28 04/21/22 07:28 Lab Results Result Diagrams: 04/20/22 11:43 04/21/22 05:42 Blood Type / Crossmatch: No Data to Display Complete Blood Count: White Blood Count 8.30 10^3/uL (4.4-10.8) 04/20/22 11:43 Red Blood Count 4.32 10^6/uL (4.36-5.78) L 04/20/22 11:43 Hemoglobin 14.5 g/dL (13.5-17.5) 04/20/22 11:43 Hematocrit 42.8 % (40.0-50.0) 04/20/22 11:43 Platelet Count 177 10^3/uL (130-400) 04/20/22 11:43 Complete Metabolic Panel: Sodium 138 mmol/L (136-145) 04/21/22 05:42 Potassium 3.5 mmol/L (3.5-5.1) 04/21/22 05:42 Chloride 104 mmol/L (98-107) 04/21/22 05:42 Carbon Dioxide 26.4 mmol/L (21.0-32.0) 04/21/22 05:42 BUN 15 mg/dL (7-18) 04/21/22 05:42 Creatinine 0.8 mg/dL (0.70-1.30) 04/21/22 05:42 Est GFR (CKD-EPI 2020) 90.02 (mL/min/1.73m2) 04/21/22 05:42 Calcium 8.4 mg/dL (8.5-10.1) L 04/21/22 05:42 Albumin 2.8 g/dL (3.4-5.0) L 04/21/22 05:42 Glucose 94 mg/dL (74-106) 04/21/22 05:42 Liver Function Panel: Alanine Aminotransferase (ALT/SGPT) 239 U/L (16-63) H 04/21/22 05:42 Aspartate Amino Transf (AST/SGOT) 36 U/L (15-37) 04/21/22 05:42 Coagulation Panel: No Data to Display Cardiac Panel: No Data to Display Arterial Blood Gas: No Data to Display Venous Blood Gas: No Data to Display Pancreas Panel: Lipase 128 U/L (73-393) 04/20/22 11:43 Thyroid Panel: No Data to Display Infectious Disease: Coronavirus (COVID-19)(PCR) Negative (Negative) 04/20/22 13:12 Coronavirus 2019 Source Nasal/Nares 04/20/22 13:12 Blood Cultures: No Data to Display Toxicology Panel: No Data to Display Anesthesia Assessment and Plan Anesthesia History Personal History: No History of Anesthesia Complications Family History: No Family History of Anesthesia Complications Exercise Tolerance Exercise Tolerance: Metabolic Equivalents>4 Pertinent Negatives Pertinent Negatives: No Major Cardiovascular Symptoms or Complaints, No Major Pulmonary Symptoms or Complaints, No History of CVA/TIA and Other (Recent epigastric pain and GERD with cholecystitis) Cardiac & Pulmonary Exam Cardiac Exam: Normal S1/S2 Heart Sounds Pulmonary Exam: Clear Bilateral Breath Sounds Implantable Cardiac Device Does patient have a Pacemaker or an ICD?: No Airway Exam Known Difficult Airway: No Mallampati Class: 2 Mouth Opening: Normal (> 3cm) Thyromental Distance: Greater than 3 cm Facial Hair: Full Oliva Neck Range of Motion: Full ROM Neck Circumference: Normal Teeth Condition: Normal Dentition ASA Classification ASA Score: ASA 2 Emergency Case?: No NPO Status NPO Status: NPO Clears >2 hours, Solids >8 hours Anesthesia Plan Resuscitation Status: Full Code Anesthesia Technique: General Anesthesia Airway Planned: Endotracheal Tube Monitors Used: Standard Monitors Preoperative Comments:: Elevated liver enzymes, levels decreasing, acute cholecystitis
--- NOTE | 2022-04-21 10:11 | PDOC.CMIN ---
- If Service Date Differs Date of service: 04/21/22 Time of Service: 10:11 Care Management Initial Assess REASON FOR HOSPITALIZATION:: cholecystitis PAST MEDICAL HISTORY/PAST SURGICAL HISTORY:: All Active Problems . Cholecystitis (Acute). Essential tremor (Acute). Well adult (Acute). Essential hypertension (Acute). Dysplastic nevus of face (Acute). FACE AND BACK. Erectile disorder, generalized, mild (Acute). Gout (Acute). Hyperglycemia (Acute). Hypertriglyceridemia (Acute). Low serum HDL (Acute). Rosacea (Acute). Senile angioma (Acute). Medical History . Gout. Hyperglycemia. Hypertriglyceridemia. Surgical History . Repair of inguinal hernia (03/08/16). RIGHT PREVIOUS FUNCTIONAL STATUS/SOCIAL/FAMILY SUPPORTS:: Ed lives in a single family home in [place], [place] with his . They have 2 children and several grandchildren who all live in [place]. Ed and his are originally from [place] but moved to [place] when they retired. He is independent at baseline and receives no community services. CURRENT FUNCTIONAL STATUS:: Ed was in surgery when CM came to meet with him, however his was present and willing to engage in conversation. She provided demographic and social information and informed CM that Ed was really hoping to be discharged later today. CM met with Ed late in the day. He was awake and alert and engaged easily in conversation. Ed shared that he decided to stay the night because he was having shoulder and neck pain from the laparoscopic procedure. He hopes to be able to discharge in the morning. ADVANCE DIRECTIVES:: No Advanced directive but [facility] paperwork complete and Fabi is [facility] Has patient been provided with info about the portal/API?: Yes Did the patient sign up for the portal?: No CODE STATUS:: Full Code INSURANCE COVERAGE / FINANCIAL ISSUES:: Medicare. AARP Plan N CURRENT HOME/COMMUNITY SERVICES/EQUIPMENT:: none PRIMARY CARE PHYSICIAN:: Johnny Carbajal POTENTIAL DISCHARGE NEEDS:: follow up with PCP and plan of care PATIENT/FAMILY EDUCATION NEEDS:: Review of discharge instructions, limitations, diet, activity, follow up plan, Ask Me Three' TRANSPORTATION:: private vehicle with family PLAN:: Ed will likely be discharged home with no new services. He will follow up with his community providers and plan of care and transport with family. CM will contiunue to support Ed and assess for ongoing discharge concerns.
--- NOTE | 2022-04-21 13:02 | GB_PTH ---
PATIENT: Lyndon Osborne JR LOC: U#:[id number] AGE/SX: 77/M ROOM: 217 RE04/20/[address]: Rigo Burton MD : [id number] BED: A DIS: 04/22/2022 SPEC #: [id number] RECD: 04/21/22 18:04 STATUS: AQUILINO REQ #: [id number] DAYNA: 04/21/22 13:[address]: Rigo Burton DEPT: Surgical Specimen RECD BY: Lucille Witt ENTERED: 04/21/22 18:04 SP TYPE: GB OTHR DR: Johnny Carbajal MD Tissues: 1 - GALLBLADDER Procedures: GROSS AND MICRO LEVEL 3 Comments: [id number]
[2022-04-21] MEDS: Bupivacaine 0.25% Pres-Free 30 ML VIAL (13:12)
--- NOTE | 2022-04-21 13:14 | W.PM.OP ---
Date of service: 04/21/22 Time of Service: 13:14 Operative Note Operative Note DATE OF PROCEDURE: 04/21/22 PRE-OP DIAGNOSIS: Acute cholecystitis POST-OP DIAGNOSIS: same PROCEDURE: Laparoscopic cholecystectomy SURGEON: Rigo Burton WAISTBAND SETTER LOCKSTITCH: Jarrell Posadas ANESTHESIA TYPE: General LMA/ETT Refer to Anesthesia Record ESTIMATED BLOOD LOSS: 50 PATHOLOGY: other (Gallbladder) COMPLICATIONS: None Patient was transported to: PACU Patient's condition: stable Indications: Lyndon is a 77-year-old male with acute on chronic midepigastric pain nausea and vomiting. He underwent an ultrasound that was consistent with acute cholecystitis. Initially, serum bilirubin level was a bit elevated, and he underwent MRCP to rule out choledocholithiasis. Procedure Description: After satisfactory induction of general anesthesia, I prepped and draped the abdomen in usual fashion. Next, I began with a periumbilical incision. I dissected down to the fascia and elevated it with Taisha clamps. I incised it sharply. Next, I passed a 12 mm operating port in the umbilical site. I secured it to the fascia with 0 Vicryl stitches. I then insufflated the peritoneal cavity. Next I inserted a 5 mm 30 degree scope and examined the underlying viscera. There was no evidence of injury created upon entry. I then placed the patient in some reverse Trendelenburg and left side down positioning. Then, with the assistance of the laparoscope, I used local anesthetic to anesthetize the midepigastric and 2 right upper quadrant port sites. Under the vision of the laparoscope, I passed 3 more 5 mm ports. I then grasped the gallbladder fundus and elevated cephalad. I began by dissecting the gallbladder infundibulum. I worked in a lateral to medial fashion. Once I skeletonized the cystic duct and cystic artery, with a satisfactory critical view of safety, I doubly clipped and divided them. I then used electrocautery to dissect the gallbladder off the gallbladder fossa. I passed the gallbladder into an Endo Catch bag and removed it by way of the umbilical site. I examined the surgical field. It was hemostatic. I then removed the 5 mm ports under the vision of the laparoscope. Finally, I removed the umbilical port site and closed the fascia with Vicryl stitches. Sites were irrigated, and the skin was closed with subcuticular stitches. Bandages were applied, patient was awakened from anesthesia, and transferred to the recovery unit.
[2022-04-21] MEDS: fentaNYL 100 MCG/2 ML VIAL IVP ×2 (13:40→13:55)
--- NOTE | 2022-04-21 13:57 | W.ANESPOSTOP ---
Postoperative Evaluation Date, Time and Location Date Performed: 04/21/22 Time Performed: 13:57 Patient Location: PACU Vital Signs Most Recent Imported Vital Signs: Most Recent Vital Signs Temp Pulse Resp BP Pulse Ox 36.6 C 44 L 21 191/79 H 98 04/21/22 13:53 04/21/22 13:53 04/21/22 13:53 04/21/22 13:53 04/21/22 13:53 Pain Score Most Recent Pain Score: Most Recent Pain Score Pain Level [Mid Posterior Back 2 04/21/22 07:57 ] Pain Level 5 04/21/22 13:53 Assessment Mental Status: Awake (Alert & Oriented to Patient Baseline) Airway and Respiratory Function: Patent airway with normal (patient baseline) respiratory exam Cardiovascular Function: Hemodynamically Stable Hydration Status: Adequately Hydrated Nausea & Vomiting: No Nausea or Vomiting Pain: Pain is tolerable per patient Peripheral Nerve Block: Patient did not receive a nerve block Postoperative Comments:: Describes mostly shoulder pain, likely secondary to insufflating gas.
[2022-04-21] MEDS: MORPHine 2 MG/ML SYR IVP ×3 (16:30→23:29)
[2022-04-21] MEDS: Normal Saline Flush 10 ML SYR IVP ×2 (16:31→19:26)
[2022-04-21] MEDS: Enoxaparin 40 MG/0.4 ML SYR SC (17:01)
[2022-04-21] MEDS: Acetaminophen 500 MG TAB 1000 MG PO (22:11)
[2022-04-22] MEDS: Acetaminophen 500 MG TAB 1000 MG PO (05:15)
[2022-04-22] MEDS: PIPERACILLIN/TAZO 3.375 GM in Normal Saline 50 ML IVPB (05:16)
--- NOTE | 2022-04-22 05:39 | W.PM.DS.N ---
DS: Diagnosis Discharge Diagnosis (1) Cholecystitis: Status: Acute Asessment and Plan: I will call you on 04/27 to follow up before your trip Discharge Plan Disposition Patient Disposition: HOME Condition: Stable Discharge Details Reason For Visit: Cholecystitis Admit Date/Time: 04/20/22 12:43 Admit Provider: Rigo Burton Attending Provider: Rigo Burton Primary Care Provider: Johnny Carbajal Hospital Course Hospital Course: Lyndon is a 77-year-old male who came to the hospital with acute midepigastric pain nausea and vomiting. He underwent an ultrasound that supported the diagnosis of acute cholecystitis. Additionally, his serum bilirubin was elevated, so he underwent an MRCP that showed no evidence of choledocholithiasis. The following day, he was brought to the operating room where he underwent laparoscopic cholecystectomy. Home Meds and New Rx's Prescriptions: New tramadol 50 mg tablet 50 mg PO QHS Qty: 9 0RF Rx Instructions: Take 1 pill by mouth as needed every evening, or as frequently as every 8 hours as needed for severe pain. this medication is quite addictive, and should be used with great caution Continued ibuprofen [Advil] 200 MG tablet 400 mg PO PRN Qty: 90 3RF triamcinolone acetonide 15 GM cream 1 appful Topical BID PRNQty: 30 Rx Instructions: apply to forehead rash as needed fluorouracil 5 % cream 1 applic topical DAILY PRN (Reason: actinic keratoses) Qty: 40 1RF Rx Instructions: apply sufficient amount to cover all lesions for 10 days tadalafil 20 mg tablet 20 mg PO DAILY PRN (Reason: sexual activity) Qty: 30 2RF Rx Instructions: administer approximately 30min before sexual activity; do not use more than 1 dose per 24hrs allopurinol 300 mg tablet 300 mg PO DAILY Qty: 90 4RF Rx Instructions: Fill when patient calls lisinopril 10 mg tablet 10 mg PO DAILY Qty: 90 3RF pantoprazole 40 mg tablet,delayed release (DR/EC) 1 tab PO DAILY Label Comments: TAKE 1 TABLET BY MOUTH ONCE DAILY acetaminophen [Acetaminophen Extra Strength] 500 mg Tablet 1,000 mg PO PRN PRN Discharge Instructions Instructions: Laparoscopic Cholecystectomy (GEN) Additional Instructions: 1. Resume all of your medications. 2. Okay to use tylenol and ibuprofen over the counter as needed. 3. Use tramadol as needed for severe pain. 4. Shower with warm soapy water. Pat dry. Use a bandaid if needed to protect your clothing. 5. No soaking or tub baths until I see you in the office. 6. No heavy lifting until I see you in the office. 7. Call the office (or go directly to the emergency room after hours) if you notice any of the following: Develop chills (warm to touch), or if you have a thermometer and your temperature is above 101 Difficulty breathing or difficultly swallowing Persistent vomiting Any bleeding ? exceeding one tablespoon 6. Call your physician if the site where your intravenous was started becomes red, swollen, painful, and warm to touch. 7. During your airplane flight, be sure to walk up and down the aisle at least one time every hour. Activity:: Activity as Tolerated Equipment/Supplies:: No Equipment Needed Diet:: As Tolerated Discharge Orders Discharge Orders: Discharge Order (Routine); Ordered 04/22/22 Ordered By: Rigo Burton DS: Summary Time Spent with Patient providing and/or coordinating discharge services: Less than 30 minutes Status at Discharge Functional status at discharge: independent ambulation Overall status at discharge: patient is progressing back to baseline Mental Status: mental status grossly normal Speech and Movement: speech and movement normal Mood: congruent mood Affect: normal affect Exam GI Other: His abdomen is soft and nondistended. His incision sites are clean. He has minimal tenderness. Psych Mental Status: mental status grossly normal Speech and Movement: speech and movement normal Mood: congruent mood Affect: normal affect DS: Data Vitals/I&O Vitals and I&O: Vital Signs Temperature 99.7 F H 04/21/22 23:15 Temperature Source Tympanic 04/21/22 23:15 Pulse 73 04/21/22 23:15 Pulse Rhythm Regular 04/22/22 03:33 Respiratory Rate 16 04/21/22 23:15 Respiratory Effort Non-Labored 04/22/22 03:33 Respiratory Depth Normal 04/22/22 03:33 Respiratory Pattern Normal 04/22/22 03:33 Blood Pressure 144/64 H 04/21/22 23:15 Blood Pressure Position Sitting 04/20/22 10:43 Pulse Oximetry 95 04/21/22 23:15 Respiratory End-tidal CO2 37 04/21/22 14:13 Oxygen Delivery Method Room Air 04/21/22 23:15 Oxygen Flow Rate 0 04/21/22 23:15 Pain Level 3 04/22/22 05:15 Comment 04/21/22 23:15 Intake & Output 04/21/22 04/21/22 04/22/22 11:59 23:59 11:59 Intake Total 972.5 / 2567.5 1595.0 / 2567.5 350 / 350 Output Total 1150 / 1450 300 / 1450 550 / 550 Balance -177.5 / 1117.5 1295.0 / 1117.5 -200 / -200 Weight 199 lb Intake: IV 972.5 / 2567.5 1595.0 / 2567.5 350 / 350 Output: Urine 1150 / 1450 300 / 1450 550 / 550 Other: Urine Color Light Alyssa Light Alyssa Dark Alyssa Urine Appearance Clear Clear Clear Urine Odor Strong Normal Normal Emesis Description None Voiding Methods Urinal Urinal Data Completed and Pending Labs on day of discharge: Labs from last 24 hours 04/21/22 05:42 Sodium 138 Potassium 3.5 Chloride 104 Carbon Dioxide 26.4 Anion Gap 7.6 BUN 15 Creatinine 0.8 Est GFR (CKD-EPI 2020) 90.02 Glucose 94 Calcium 8.4 L Total Bilirubin 2.0 H Conjugated Bilirubin 1.1 H AST 36 ALT 239 H Alkaline Phosphatase 170 H Total Protein 6.1 L Albumin 2.8 L PFSH All Active Problems Status post hernia repair (Acute 03/24/17) Cholecystitis (Acute) Essential tremor (Acute) Well adult (Acute) Essential hypertension (Acute) Dysplastic nevus of face (Acute) FACE AND BACK Erectile disorder, generalized, mild (Acute) Gout (Acute) Hyperglycemia (Acute) Hypertriglyceridemia (Acute) Low serum HDL (Acute) Rosacea (Acute) Senile angioma (Acute) Medical History Gout Hyperglycemia Hypertriglyceridemia Surgical History Repair of inguinal hernia (03/08/16) RIGHT Family History Mother Bile duct cancer Sister No problems noted. Sister No problems noted. Brother Stroke Brother No problems noted. Brother No problems noted. Social History Smoking/Tobacco Use Status: Never Second Hand Exposure: Yes Smoking risk assessment performed?: Yes Alcohol Intake: current Alcohol Intake frequency: 3 or more drinks per day Alcohol type: beer Drug use: Never Substance use type: does not use Caregiver/Support person: No Household members: spouse Housing: house Communication Needs: None and Hard of Hearing Pets and animals: No Sexually active: Yes Do you think of yourself as: straight/heterosexual Current gender identity: male What is your relationship status?: How often do you talk on the phone with friends or family?: decline to answer How often do you get together with friends or relatives?: decline to answer How often do you attend zoroastrian or scientologist services?: decline to answer Do you belong to any clubs or organized social groups?: decline to answer Panel score (0-1 are the most socially isolated patients): 1 Jessica/Hindu: No preference Special jessica needs: No Do you feel safe at home: Yes Do you feel safe in your relationship?: Yes
[2022-04-22 08:22] VITALS: BP 158/63; PULSE 75; RESP 18; TEMP 37.2; O2SAT 96
[2022-04-22] MEDS: Normal Saline Flush 10 ML SYR IVP (08:29)
[2022-04-22] MEDS: Lisinopril 10 MG TAB PO (08:29)
--- NOTE | 2022-04-22 08:36 | PDOC.CMDIS ---
- If Service Date Differs Date of service: 04/22/22 Time of Service: 08:36 LACE Index Scoring Tool - Questions: Length of Stay (in days): 1 Acuity (Admit via E.D.?): Yes E.D. Visits: 1 - Answers: Total Score: 5 Risk of Readmission: Low Risk Care Management Discharge Reason for Hospitalization: cholecystitis Discharge Plan: Ed will be discharged home with no new services. He will follow up with his community providers and plan of care and transport with family. Patient/Family Education Needs: Review of discharge instructions, limitations, diet, activity, follow up plan, Ask Me Three'
== END 2022-04-22 11:00 | disposition home or self-care (01) | DRG 419 ==
LOC: ER 13:31 → MS 13:51
PROVIDERS: Admitting Provider Surgery; Emergency Provider Physician Assistant; PCP Family Medicine; Visit Provider Surgery
PROC: 0FT44ZZ Resection of Gallbladder, Percutaneous Endoscopic Approach (ICD-10-PCS; CPT 47562; principal; 2022-04-21 12:00)
DX: K81.2 Acute cholecystitis with chronic cholecystitis (principal); G25.0 Essential tremor; E78.1 Pure hyperglyceridemia; M10.9 Gout, unspecified; R73.9 Hyperglycemia, unspecified; I10 Essential (primary) hypertension; L71.9 Rosacea, unspecified
CPT/HCPCS: 47562; 36415; 80053; 83690; 87635; 96365; 99222; 99285; J1650; 74181; 76705; 81003; 81015; 82248; 85025; 88304; J1100; J1885; J2270; J2405; J2543; J2704; J3010

== ENCOUNTER 2022-11-17 03:16 | Outpatient (CLI) | payer MEDICARE, SELFPAY ==
[2022-11-17 12:46] LABS: ALT 32 U/L (16-63); AST 22 U/L (15-37); Calculated LDL 102 mg/dL (<100); Cholesterol 182 mg/dL (<200); HDL Cholesterol 44 mg/dL (40-60); Triglyceride 181 mg/dL (<150)
[2022-11-17 13:02] LABS: Uric Acid 3.6 mg/dL (3.5-7.2)
== END 2022-11-17 03:17 | disposition home or self-care (01) ==
LOC: LOS 03:16
PROVIDERS: PCP Family Medicine; Visit Provider Family Medicine
DX: E78.5 Hyperlipidemia, unspecified (principal); K76.0 Fatty (change of) liver, not elsewhere classified; M10.9 Gout, unspecified
CPT/HCPCS: 36415; 80061; 84450; 84460; 84550

== ENCOUNTER 2023-11-23 05:00 | Outpatient (CLI) | payer MEDICARE, SELFPAY ==
[2023-11-23 13:02] LABS: CREATININE 0.9 mg/dL (0.70-1.30); Calculated LDL 86 mg/dL (<100); Cholesterol 154 mg/dL (<200); Estimated GFR 86.34 (mL/min/1.73m2); HDL Cholesterol 44 mg/dL (40-60); Potassium 3.9 mmol/L (3.5-5.1); Triglyceride 123 mg/dL (<150)
[2023-11-23 20:08] LABS: Hepatitis C Ab w Rflx HCV PCR Negative (Negative)
[2023-11-23 20:09] LABS: HBs Antibody, Quant <3.1 mIU/mL (See Note); Hep B Surface Ab Negative (See Note); Hepatitis B Core Antibody Negative (Negative); Hepatitis B Surface Antigen Negative (Negative)
[2023-11-23 20:12] LABS: HIV-1/2 Ag & Ab Screen Negative (Negative)
[2023-12-04 17:01] LABS: Testosterone, Total 441 ng/dL (240-950)
== END 2023-11-23 05:01 | disposition home or self-care (01) ==
LOC: LOS 05:00
PROVIDERS: PCP Family Medicine; Visit Provider Family Medicine
DX: I10 Essential (primary) hypertension (principal); Z00.00 Encounter for general adult medical examination without abnormal findings; E78.5 Hyperlipidemia, unspecified; Z11.59 Encounter for screening for other viral diseases
CPT/HCPCS: 36415; 80061; 84402; 84403; 86704; 86706; 86803; 87340; 87389; 82565; 84132

== ENCOUNTER 2024-11-28 03:14 | Outpatient (CLI) | payer MEDICARE, SELFPAY ==
[2024-11-28 12:07] LABS: HCT 47.6 % (40.0-50.0); HGB 16.1 g/dL (13.5-17.5); MCHC 33.8 % (32.0-36.0); MCV 100 fL (80-95); MPV 10.3 fL (8.0-11.0); Platelet Count 211 10^3/uL (130-400); RBC 4.74 10^6/uL (4.36-5.78); RDW 12.5 % (11.8-14.1); RDW-SD 47.1 fL; WBC 5.74 10^3/uL (4.4-10.8)
[2024-11-28 12:18] LABS: Uric Acid 3.9 mg/dL (3.5-7.2)
[2024-11-28 12:22] LABS: ALT 26 U/L (16-63); AST 20 U/L (15-37); Alkaline Phosphatase 71 U/L (46-116); Anion Gap 7.2 mmol/L (3-11); BUN 16 mg/dL (7-18); Bilirubin, Total 1.3 mg/dL (0.2-1.0); CO2 29.8 mmol/L (21.0-32.0); CREATININE 0.8 mg/dL (0.70-1.30); Calcium 9.1 mg/dL (8.5-10.1); Chloride 104 mmol/L (98-107); Estimated GFR 88.91 (mL/min/1.73m2); Glucose 108 mg/dL (74-106); Potassium 4.5 mmol/L (3.5-5.1); Sodium 141 mmol/L (136-145); Total Protein 6.8 g/dL (6.4-8.2)
[2024-11-28 14:24] LABS: Lab Add On Test DONE
[2024-12-12 15:42] LABS: Testosterone, Free 15.7 ng/dL (2.88-10.5); Testosterone, Total 550 ng/dL (240-950)
== END 2024-11-28 03:15 | disposition home or self-care (01) ==
LOC: LOS 03:15
PROVIDERS: PCP Family Medicine; Visit Provider Family Medicine
DX: R53.83 Other fatigue (principal); M10.9 Gout, unspecified; R10.9 Unspecified abdominal pain; R63.4 Abnormal weight loss
CPT/HCPCS: 36415; 80048; 80053; 84402; 84403; 85027; 84550